=== PATIENT | female | born 1940 | race Two or more races ===

== ENCOUNTER 2020-05-15 07:10 | Day surgery (SDC) | payer OTHER | END 2020-05-15 13:45 | disposition home or self-care (01) | LOC: AMB-ENDOS 07:10 | PROVIDERS: ATTEND Colon & Rectal Surgery | DX: D12.2 Benign neoplasm of ascending colon (principal); Z12.11 Encounter for screening for malignant neoplasm of colon; Z20.828 Contact with and (suspected) exposure to other viral communicable diseases; K64.1 Second degree hemorrhoids ==